=== PATIENT | female | born 1975 | race Caucasian/White ===

== ENCOUNTER 2017-06-18 15:56 | Emergency (ER) | payer BC ==
[~2017-06-18] VITALS: Ht 157.5 cm; Wt 52.2 kg
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
[2017-06-18] MEDS ORDERED: MORPHINE SULFATE INJ 4 MG/ML DISP.SYRIN ONE (16:26)
[2017-06-18] MEDS ORDERED: ONDANSETRON HCL/PF 4 MG/2 ML VIAL ONE (16:26)
[2017-06-18] MEDS ORDERED: IV NS 0.9% 500 ML BAG IV ONE (16:30)
[2017-06-18] MEDS ORDERED: MORPHINE SULFATE INJ 2 MG/ML DISP.SYRIN IV ONE (16:30)
[2017-06-18] MEDS ORDERED: ONDANSETRON 4 MG TAB.RAPDIS PO ONE (16:30)
--- NOTE | 2017-06-18 16:35 | NUR ---
VERBAL ORDER DR REBOLLAR GIVE ZOFRAN 4MG IV INSTEAD OF PO
--- NOTE | 2017-06-18 16:50 | NUR ---
IV REMOVED BY PATIENT. APPLIED PRESSURE AND BY 4X4 GAUZE
[2017-06-18] MEDS ORDERED: ONDANSETRON HCL/PF - ER 4 MG/2 ML VIAL IV ONE (17:30)
--- NOTE | 2017-06-18 17:55 | NUR ---
Patient discharged to home in stable condition. Written and verbal after care instructions given. Patient verbalizes understanding of instruction.
[2017-06-18 17:56] VITALS: BP 118/70
== END 2017-06-18 17:57 | disposition home or self-care (01) ==
LOC: ER 15:57
DX: M54.2 Cervicalgia (principal); M25.562 Pain in left knee; R11.0 Nausea; R51 Headache; V49.40XA Driver injured in collision with unspecified motor vehicles in traffic accident, initial encounter; Y93.89 Activity, other specified; Y92.89 Other specified places as the place of occurrence of the external cause; Y99.9 Unspecified external cause status
CPT/HCPCS: 70450; 72125; 73564; 96374; 96375; 99284; A4606; J2270; J2405 ×2; J7040 ×2; Z7610